=== PATIENT | female | born 1970 | race Caucasian/White ===

== ENCOUNTER 2024-11-01 14:10 | Outpatient (AMB) | payer MEDICAID, SELFPAY ==
--- NOTE | 2024-11-01 14:22 | ORTHONT_ITS ---
Vital signs 11/01/24 14:23 Height 1.57 m Height Method Measured Weight 100.839 kg Weight Measurement Method Standing Scale BMI 40.6 BP 154/81 H Blood Pressure Source Automatic Cuff Blood Pressure Location Left Upper Arm Position Sitting Respiration 18 Pulse 68 Pulse Source Monitor Temp 97.1 F Temp Source Temporal Artery Scan Pulse Oximetry (%) 98 Oxygen Delivery Method Room Air Med/Allergies Allergies & Medications Allergies NKA* Allergy (Uncoded 11/01/24 14:24) Medication Reconciliation No Known Home Medications 11/01/24 [History Confirmed 11/01/24] Exam Exam Patient is in no acute distress and is cooperative with the examination today. Breathing is nonlabored. Patient has a normal mood and affect. The patient has a gait that is nonantalgic Bilateral extremities were evaluated and demonstrates sensation intact to light touch. Palpable pedal pulses are present. No significant edema is present. Bilateral hips were examined. The patient has no pain with log roll of the hips. Internal rotation to 30 degrees and external rotation to 30 degrees is painless. Negative FADIR. Right knee was examined today. The right knee is in reasonable alignment. Range of motion from 0-120 degrees. Knee is stable to varus and valgus as well as AP translation with <5mm. Patient has a negative McMurrays. There is no pain with patellofemoral compression and no crepitus noted. The knee is nontender to palpation. Left knee was examined today. The left knee is in neutral alignment. Range of motion from 0-120 degrees. Knee is stable to varus and valgus as well as AP translation with <5mm. Patient has a negative McMurrays. There is no pain with patellofemoral compression and no crepitus noted. The knee is tender to palpati on surgery. Laterally approximately 4 cm both patella laterally. This is also the location of her dilated veins. Assessment and Plan Problem List (1) Pain in left knee: Status: Acute Plan: Patient is a 54-year-old female with left knee pain and superior lateral knee pain. We will order x-rays to see what it looks like. I do suspect that this is either from her back or her dilated veins as she does describe pain in her entire leg. We will see her back after her left knee x-rays are done Office Procedures GNS Level of Care Nursing/Assessment Patient Status: Initial/New Patient Nursing Assessment/Reassesment: Medication Reconciliation, Orthostatic Vitals and Update PMH in EMR Coordination of Care: Complex Care and Chronic Disease 1-5, Education Complex Pt/Fam, Consent,records obtained, informed consent, Lab and Imaging orders, Results/Orders obtained and Staff clarify orders Special Needs: Language special needs New Patient Charge New Patient Point Assignment: 1104 New Patient Point Charge: SHAREPOINT ARCHITECT Level 3 ([id number]) MA Intake Visit Data Collection New Patient or Established: New Patient (never been to [facility]) Reason for Visit:: LEFT KNEE PAIN Seen by Clinical Staff ONLY (RN/MA): No Behaviour Support Teacher Required: Yes PCP or OBGYN visit in last 3 months: Yes Hx Now: No Do You Feel Safe at Home: Yes Authorities Contacted: N/A Questionairres Past Medical History Past Medical History Have you ever been diagnosed with any of the following: Subjective Visit Visit for: new patient and knee Immunization / Flu Flu Vaccine in the Last 12 Months: Yes Flu Vaccine Exclusion Criteria: Already Received History of Present Illness Chief complaint: LEFT KNEE PAIN Patient is a pleasant 54-year-old female with left knee pain that has been ongoing for quite a while. She does have a history of radicular pain that starts in the back and goes down both legs. The pain is in the thigh primarily. She had an x-ray and was told that they could not find anything is particular. She does not have an x-ray with her today. She has not had any injections in her knee. 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
[2024-11-01 14:23] VITALS: BP 154/81; PULSE 68; RESP 18; TEMP 36.2; O2SAT 98; BMI 40.6
--- NOTE | 2024-11-01 14:26 | XR_ITS ---
Examination: Bilateral AP knees single view Left knee PA lateral axial 3 views TECHNIQUE: Bilateral AP knees standing single view Left knee PA flexion standing, lateral standing, axial left knee total 3 views Date and time: November 01, 2024 1435 hours INDICATIONS: Left knee pain beginning 6 months ago. FINDINGS: Moderate osteopenia. Moderate narrowing medial joint space left knee Moderate osteoarthritis lateral patellofemoral joints Moderate narrowing medial joint space right knee IMPRESSION: Osteoarthritis as above
== END 2024-11-01 14:34 | disposition home or self-care (01) ==
LOC: HODSRG 14:10
PROVIDERS: PCP Family Medicine; Referring Provider Family Medicine; Supervising Provider Orthopaedic Surgery Adult Reconstructive Orthopaedic Surgery; Visit Provider Orthopaedic Surgery Adult Reconstructive Orthopaedic Surgery
DX: M25.562 Pain in left knee (principal); M17.12 Unilateral primary osteoarthritis, left knee
CPT/HCPCS: 73564; 99203; G0463

== ENCOUNTER 2024-11-22 08:06 | Outpatient (AMB) | payer MEDICAID, SELFPAY ==
--- NOTE | 2024-11-22 08:14 | PD.ORTHCLVIS ---
Vital signs 11/22/24 08:18 Height 1.57 m Height Method Measured Weight 99.847 kg Weight Measurement Method Standing Scale BMI 40.5 BP 147/79 H Blood Pressure Source Automatic Cuff Blood Pressure Location Left Upper Arm Position Sitting Respiration 18 Pulse 64 Pulse Source Monitor Temp 97.6 F Temp Source Temporal Artery Scan Pulse Oximetry (%) 96 Oxygen Delivery Method Room Air Med/Allergies Allergies & Medications Allergies NKA* Allergy (Uncoded 11/22/24 08:18) Medication Reconciliation No Known Home Medications 11/01/24 [History Confirmed 11/22/24] Exam Exam Patient is in no acute distress and is cooperative with the examination today. Breathing is nonlabored. Patient has a normal mood and affect. The patient has a gait that is nonantalgic Bilateral extremities were evaluated and demonstrates sensation intact to light touch. Palpable pedal pulses are present. No significant edema is present. Bilateral hips were examined. The patient has no pain with log roll of the hips. Internal rotation to 30 degrees and external rotation to 30 degrees is painless. Negative FADIR. Right knee was examined today. The right knee is in reasonable alignment. Range of motion from 0-120 degrees. Knee is stable to varus and valgus as well as AP translation with <5mm. Patient has a negative McMurrays. There is no pain with patellofemoral compression and no crepitus noted. The knee is nontender to palpation. Left knee was examined today. The left knee is in neutral alignment. Range of motion from 0-120 degrees. Knee is stable to varus and valgus as well as AP translation with <5mm. Patient has a negative McMurrays. There is no pain with patellofemoral compression and no crepitus noted. The knee is tender to palpation surgery. Laterally approximately 4 cm both patella laterally. This is also the location of her dilated veins. Xrays of her bilateral knees from clif view demonstrate moderate joint space narrowing medially Assessment and Plan Problem List (1) Pain in left knee: Status: Acute Plan: Patient is a 54-year-old female with left knee pain and superior lateral knee pain. She has moderate arthritis of her left. She does understand that a lot of the pain is likely from her back. She was told this by multiple other physicians as well. Will try a cortisone injection of her left hip for diagnostic and therapeutic purposes Recommend knee cortisone injection as patient would like to proceed with conservative treatment at this time. The risks and benefits of the procedure were reviewed with the patient and patient gave verbal consent to continue with the procedure. Procedure: performed by Dr. Hernandez Using sterile technique the left knee was thoroughly prepped with alcohol, and approximately 1 cc of Depo-Medrol 80mg/mL and 4 cc of 0.2% ropivacaine was injected without resistance into the medial tibial femoral joint space. The patient tolerated the procedure. Office Procedures GNS Level of Care Nursing/Assessment Patient Status: Established Patient Nursing Assessment/Reassesment: Medication Reconciliation, Orthostatic Vitals and Update PMH in EMR Coordination of Care: Complex Care and Chronic Disease 1-5, Education Complex Pt/Fam, Consent,records obtained, informed consent, Results/Orders obtained and Staff clarify orders Special Needs: Language special needs Established Patient Charge Established Patient Point Assignment: 90 Established Patient Point Charge: EP Level 3 (80-115) Surgical Proc/IM SQ injection Major Surgical Procedure: Yes (KNEE INJECTION) Medication Given Medication Given Medication Given: Yes Documented Dose Given: 1 Route: Infiitration Medication Given Medication Given Medication Given: Yes Documented Dose Given: 4 Route: Infiitration Office Meds methylprednisolone acetate 80 mg/mL suspension for injection Performing Provider: Óscar Hernandez MD Performing Location: [facility] Administered by: Óscar Hernandez MD on 11/22/24 08:34 Dose Route Admin Location Dispensed Lot Number Expiration Date [facility] Medical Liaison 80 mg intra-articular 1 mL [id number] 09/07/26 [address]-2 [employer] ropivacaine (PF) 2 mg/mL (0.2 %) injection solution Performing Provider: Óscar Hernandez MD Performing Location: [facility] Administered by: Óscar Hernandez MD on 11/22/24 08:34 Dose Route Admin Location Dispensed Lot Number Expiration Date [facility] Medical Liaison 20 mL Infiltration 20 mL [id number] 02/07/26 21198-012-65 [facility] Intake Visit Data Collection New Patient or Established: Established Patient (seen at [facility] within 3 years) Reason for Visit:: LEFT KNEE PAIN XRAY RESULTS Seen by Clinical Staff ONLY (RN/MA): No Epic Prelude Analyst Required: Yes PCP or OBGYN visit in last 3 months: Yes Hx Now: No Do You Feel Safe at Home: Yes Authorities Contacted: N/A Questionairres Past Medical History Past Medical History Have you ever been diagnosed with any of the following: Respiratory Problems Smoking: No Smoking Cessation Counseling: No Smoking Exposure: No Subjective Visit Visit for: follow up visit and knee Immunization / Flu Flu Vaccine in the Last 12 Months: Yes Flu Vaccine Exclusion Criteria: Already Received History of Present Illness Chief complaint: XRAY RESULTS/KNEE PAIN Patient is a pleasant 54-year-old female with left knee pain that has been ongoing for quite a while. She does have a history of radicular pain that starts in the back and goes down both legs. The pain is in the thigh primarily. She had an x-ray and was told that they could not find anything is particular. She has not had any injections in her knee. 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
[2024-11-22 08:18] VITALS: BP 147/79; PULSE 64; RESP 18; TEMP 36.4; O2SAT 96; BMI 40.5
== END 2024-11-22 08:39 | disposition home or self-care (01) ==
LOC: HODSRG 08:06
PROVIDERS: PCP Family Medicine; Referring Provider Family Medicine; Supervising Provider Orthopaedic Surgery Adult Reconstructive Orthopaedic Surgery; Visit Provider Orthopaedic Surgery Adult Reconstructive Orthopaedic Surgery
DX: M25.562 Pain in left knee (principal); M19.90 Unspecified osteoarthritis, unspecified site
CPT/HCPCS: 20610; 99213; J1010; J2795; G0463